=== PATIENT | male | born 1990 | race Caucasian/White ===

== ENCOUNTER 2017-09-28 09:10 | Outpatient (CLI) | payer BC ==
[2014-09-03 23:46] VITALS: BP 128/68
--- NOTE | 2017-09-28 10:47 | Diagnostic Imaging Report ---
ARIELA SMITH [facility] [id number] [facility] [address] [address] Report Submission Date: Sep 28, 2017 9:43:10 AM BUNDLE SHAKER Patient Study Name: TRUNG SAUNDERS Date: Sep 28, 2017 9:20:35 AM BUNDLE SHAKER Modality Type: CR Gender: M Description: LOWER EXTREMITY : 89 Institution: [facility] Physician: ARIELA SMITH Examination: Plain film foot History: Injury. Findings: 3 views of the foot demonstrates normal cortical margins. No fracture or dislocation. Os naviculare. Well corticated ossicle density adjacent to the fibula. No soft tissue swelling. No joint effusion. Impression: No acute osseous process. Electronically signed on Sep 28, 2017 9:43:10 AM BUNDLE SHAKER by: Bobby VENTURA
--- NOTE | 2017-09-28 10:48 | Diagnostic Imaging Report ---
ARIELA SMITH [facility] [address] [facility] [address] 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 No fracture or dislocation. Talar dome is intact. Well corticated ossific density inferior to the fibula. No soft tissue swelling. No joint effusion. Impression: Old fibular avulsion versus unfused ossicle. No acute appearing osseous process. Electronically signed on Sep 28, 2017 9:41:19 AM ASBESTOS WORKER HELPER by: Bobby VENTURA
== END 2017-09-28 09:11 ==
LOC: RAD 09:10
PROVIDERS: ATTEND Physician Assistant
DX: M25.572 Pain in left ankle and joints of left foot (principal); M79.672 Pain in left foot
CPT/HCPCS: 73610; 73630